=== PATIENT | female | born 1975 | race Caucasian/White ===

== ENCOUNTER 2025-03-09 10:32 | Emergency (ER) | payer OTHER ==
[~2025-03-09] VITALS: Ht 170.2 cm; Wt 106.0 kg
[2025-03-09 10:42] VITALS: TEMP 97.5
[2025-03-09] MEDS ORDERED: AMPICILLIN SODIUM 2 GM VIAL IM ONE (12:15)
[2025-03-09] MEDS ORDERED: HYDR-4072 PO (12:20)
[2025-03-09] MEDS: IBUPROFEN 400 MG TABLET PO ONE (12:41)
[2025-03-09] MEDS: HYDROCODONE/ACETAMINOPHEN 5-325 MG TABLET PO ONE (12:42)
[2025-03-09] MEDS: AMPICILLIN SODIUM 2 GM/NS 100 ML IV ONE (14:17)
[2025-03-09 15:45] VITALS: BP 135/72; PULSE 78; RESP 18; O2SAT 98
== END 2025-03-09 16:10 | disposition home or self-care (01) ==
LOC: EMS 10:37
DX: S02.5XXA Fracture of tooth (traumatic), initial encounter for closed fracture (principal); K02.9 Dental caries, unspecified; I25.10 Atherosclerotic heart disease of native coronary artery without angina pectoris; F17.210 Nicotine dependence, cigarettes, uncomplicated; Z95.5 Presence of coronary angioplasty implant and graft; X58.XXXA Exposure to other specified factors, initial encounter; Y93.89 Activity, other specified; Y92.89 Other specified places as the place of occurrence of the external cause; Y99.8 Other external cause status
CPT/HCPCS: 99284; 96365; J0290